=== PATIENT | female | born 1960 | race Caucasian/White ===

== ENCOUNTER 2016-05-14 16:36 | Emergency (ER) | payer OTHER ==
[2016-05-14 17:18] VITALS: BP 150/83
[2016-05-14] MEDS ORDERED: IBUPROFEN 600 MG TABLET PO ONE (17:58)
--- NOTE | 2016-05-14 17:58 | ERNOTE ---
Medical Problem HPI - Narrative Date of Service: 05/14/16 - General Chief Complaint: General Assessment Time Seen by Provider: 05/14/16 17:32 Source: patient Exam Limitations: no limitations - Immun/Allergies/Home Medications Immunizations: IMMUNIZATION HX Immunizations Up to Date Yes Allergies/Adverse Reactions: Allergies pravastatin sodium [From Pravachol] Allergy (Verified 05/14/16 17:18) atorvastatin calcium [From Lipitor] Adverse Reaction (Verified 05/14/16 17:18) muscle aches codeine Adverse Reaction (Verified 05/14/16 17:18) Nausea niacin Adverse Reaction (Verified 05/14/16 17:18) simvastatin [From Zocor] Adverse Reaction (Verified 05/14/16 17:18) muscle aches Siqabqv-Nxt-Ttv Reductase Inhibitor Adverse Reaction (Verified 05/14/16 17:18) muscle aches Home Medications: HOME MEDICATIONS Clonidine HCl [Catapres] 0.1 mg PO BID 02/23/13 [Last Taken Unknown] FLUoxetine HCL [Prozac] 60 mg PO DAILY 02/23/13 [Last Taken Unknown] Lisinopril 10 mg PO DAILY 02/23/13 [Last Taken Unknown] Metformin HCl 1,000 mg PO BID 02/23/13 [Last Taken Unknown] Omeprazole [Prilosec] 40 mg PO DAILY 02/23/13 [Last Taken Unknown] Oxybutynin Chloride [Ditropan Xl] 10 mg PO BID 02/23/13 [Last Taken Unknown] Cyclobenzaprine HCl [Flexeril] 10 mg PO BID 06/02/13 [Last Taken Unknown] Memantine HCl [Namenda] 10 mg PO BID 06/02/13 [Last Taken Unknown] Trazodone HCl 450 mg PO DAILY 06/02/13 [Last Taken Unknown] Cholecalciferol (Vitamin D3) [Vitamin D] 1,000 unit PO DAILY 08/02/13 [Last Taken Unknown] Albuterol Sulfate 2.5 mg IH Q4H #50 vial.neb 09/13/14 [Last Taken Unknown] Albuterol Sulfate/Ipratropium [Duoneb 2.5-0.5MG/3ML Soln] 3 ml IH Q6H #50 nebu 09/13/14 [Last Taken Unknown] Cymbalta 11/26/15 [Last Taken Unknown] Albuterol Sulfate [Ventolin Hfa] 2 puff IH Q4H PRN #1 inhaler 05/14/16 [Last Taken Unknown] Doxycycline Monohydrate 100 mg PO BID #20 tablet 05/14/16 [Last Taken Unknown] predniSONE [Prednisone] 3 tab PO DAILY #9 tab 05/14/16 [Last Taken Unknown] - History of Present History Narrative: Pt. comes in with c/o fever, malaise, nausea and vomiting, cough, and headache for two days. Pt. was seen in [facility] yesterday and diagnosed with upper resp infection but was found to be negative for strep and influenza per pt. Pt. denies any alleviating or aggravating factors, SOB, lightheadedness or dizziness. Pt. has a hx of COPD but has not used her nebulizer in over a month. Review of Systems - Review of Systems Constitutional: Present: recent illness, fever, chills, weakness, fatigue EYE: Present: no symptoms reported ENT: Present: nose congestion, nasal drainage. Absent: sore throat Respiratory: Present: cough. Absent: shortness of breath, wheezing Cardiology: Present: no symptoms reported. Absent: chest pain, palpitations, edema Gastrointestinal/Abdominal: Present: nausea, vomiting. Absent: diarrhea, abdominal pain Genitourinary: Present: no symptoms reported. Absent: frequency, dysuria, discharge Musculoskeletal: Present: muscle pain - generalized, joint pain - generalized. Absent: back pain Neurological: Present: no symptoms reported. Absent: headache, dizziness/light- headedness, numbness, tingling All Other Systems: All systems neg except as marked - Patient's Past Medical History Patient History - Medical: No pertinent hx, Diabetes Type 2, Fibromyalgia, GERD Patient History - Cardiac/Respiratory: No pertinent hx, Hypertension Patient History - Cancer: No Hx of Cancer Patient History - Surgical Procedures: No surgical history Patient History - Other: None LMP (females 10-50): Menopausal - Social History Living Situations: home - Immunizations Immunizations Up to Date: Yes Physical Exam - Physical Exam General Appearance: Present: wd/wn, alert, no apparent distress Eye Exam: Normal inspection: bilateral, PERRL: bilateral, EOMI: bilateral Ears, Nose, Throat: Present: hearing grossly normal, nasal congestion, normal pharynx. Absent: abnormal TM (R), abnormal TM (L) Neck: Present: nontender, lymphadenopathy (R) - submandibular ant cervical. Absent: lymphadenopathy (L) Respiratory: Present: no respiratory distress, no accessory muscle use, chest nontender, wheezing - L lung throughout Cardiovascular/Chest: Present: regular rate, rhythm, no murmur, normal peripheral pulses Gastrointestinal/Abdominal: Present: normal bowel sounds, nontender, nondistended, soft, no organomegaly Back Exam: Present: normal inspection, normal range of motion, no CVA tenderness , no vertebral tenderness Extremity Exam: Present: normal inspection, non-tender, no edema, normal range of motion Neurological Exam: Present: alert, oriented, normal mood/affect, no motor/ sensory deficits, organisation and methods analyst II-XII nml as tested, normal cerebellar test Skin Exam: Present: warm/dry, pallor. Absent: skin rash ED Progress - Results and Orders Patient's Lab Results:: I have reviewed the patient's lab results. - Vital Signs Patient's Vital Signs:: I have reviewed the patient's vital signs. Vital Signs: Vital Signs 05/14/16 17:13 Temperature 37.9 C H Pulse Rate 58 L Respiratory 16 Rate Blood Pressure 150/83 O2 Sat by Pulse 95 Oximetry - X-Ray X-Ray #1 X-Ray: chest Interpretation: Reviewed by me X-ray Comments: mild diffuse peribronchial thickening - Progress/Reassessment Chief Complaint: General Assessment Progress:: Improved Departure - Departure Clinical Impression: Acute bronchitis Qualifiers: Bronchitis organism: unspecified organism Qualified Code(s): J20.9 - Acute bronchitis, unspecified Disposition: Home self-care Condition: Good Instructions: Acute Bronchitis Additional Instructions: Please follow up with primary provider in 2-3 days. Referrals: Yanet Saravia MD [Primary Care Provider] - Prescriptions: Albuterol Sulfate [Ventolin Hfa] 2 puff IH Q4H PRN #1 inhaler PRN Reason: Shortness Of Breath Doxycycline Monohydrate 100 mg PO BID #20 tablet predniSONE [Prednisone] 3 tab PO DAILY #9 tab
[2016-05-14 18:09] LABS: Hematocrit 40.6 % (37.0-47.0); Hemoglobin 14.3 gm/dL (12.5-16.0); Mean Cell Volume 87.9 fl (78-100); Mean Corpuscular Hgb Conc 35.2 g/dl (32-36); Mean Platelet Volume 9.9 fl (6.0-9.5); Neutrophil # 6.8 K/mm3 (1.3-6.0); Neutrophil % 61.3 % (42-75.0); Platelet Count 257 K/mm3 (150-450); Red Blood Count 4.62 M/mm3 (4.2-5.4); Red Cell Distribution Width 11.7 % (11.5-14.0); White Blood Count 11.1 K/mm3 (4.0-10.5)
[2016-05-14] MEDS ORDERED: IBUPROFEN 600 MG TABLET ONE (18:10)
[2016-05-14 18:23] LABS: Anion Gap 15.2 mmol/L (6.8-13.8); BUN/Creatinine Ratio 16.7 (9.0-21.6); Bilirubin, Total 0.5 mg/dL (0.0-1.1); Ca. Corrected For Albumin 9.2 mg/dL (8.4-10.2); Calcium * 9.5 mg/dL (7.9-10.9); Carbon Dioxide 23.5 mmol/L (24-32.6); Potassium 3.7 mmol/L (3.4-4.6); Total Protein 7.8 gm/dL (6.2-8.2)
== END 2016-05-14 19:42 | disposition home or self-care (01) ==
LOC: ER 16:36
DX: J20.9 Acute bronchitis, unspecified (principal)

== ENCOUNTER 2017-11-21 06:25 | Inpatient (IN) | payer MEDICAID, MEDICARE ==
--- NOTE | 2017-11-09 07:27 | ANES ---
Anesthesia Pre Procedure Eval HOME MEDICATIONS FLUoxetine HCL [Prozac] 60 mg PO DAILY 02/23/13 [Last Taken Unknown] Omeprazole [Prilosec] 40 mg PO DAILY 02/23/13 [Last Taken Unknown] Oxybutynin Chloride [Ditropan Xl] 10 mg PO BID 02/23/13 [Last Taken Unknown] Memantine HCl [Namenda] 10 mg PO BID 06/02/13 [Last Taken Unknown] Cholecalciferol (Vitamin D3) [Vitamin D] 1,000 unit PO DAILY 08/02/13 [Last Taken Unknown] clonidine HCl 0.1 mg tablet See Label Instructions PO .COMPLEX #90 tab 10/24/17 [Last Taken Unknown] blood sugar diagnostic strips See Dose Instructions .ROUTE .MEDSUPPLY #20 ea 02/02 [Last Taken Unknown] glipizide 5 mg tablet 5 mg PO BID 10/25/17 [Last Taken Unknown] meloxicam 15 mg tablet 15 mg PO DAILY #30 tab 10/25/17 [Last Taken Unknown] metformin 500 mg tablet See Label Instructions PO BID 10/25/17 [Last Taken Unknown] tizanidine 4 mg capsule 4 mg PO Q8H PRN #30 cap 10/25/17 [Last Taken Unknown] trazodone 150 mg tablet See Label Instructions PO DAILY 10/25/17 [Last Taken Unknown] Allergies/Adverse Reactions: Allergies Allergy/AdvReac Type Severity Reaction Status Date / Time pravastatin sodium Allergy Verified 11/07/17 09:40 [From Pravachol] atorvastatin calcium AdvReac muscle Verified 11/07/17 09:40 [From Lipitor] aches codeine AdvReac Nausea Verified 11/07/17 09:40 niacin AdvReac Verified 11/07/17 09:40 simvastatin [From Zocor] AdvReac muscle Verified 11/07/17 09:40 aches Pquwngs-Ajg-Lqh Reductase AdvReac muscle Verified 11/07/17 09:40 Inhibitor aches - Planned Procedure Planned Procedure: Right Total Knee Arthroplasty Medication List Reviewed:: Yes Allergies Verified: Yes Medical History (Last Reviewed 11/09/17 @ 07:23 by Jacques Ken CRNA) Depression Onset Date: Unknown Diabetes type 2, controlled Onset Date: Unknown Essential hypertension Onset Date: ~2011 Fatigue Onset Date: Unknown Fibromyalgia Onset Date: Unknown GERD (gastroesophageal reflux disease) Onset Date: Unknown Hyperlipidemia Onset Date: ~2011 Obstructive sleep apnea Onset Date: 08/17/13 TMJ (temporomandibular joint disorder) Onset Date: Unknown Surgical History (Last Reviewed 11/09/17 @ 07:23 by Jacques Ken CRNA) History of appendectomy Onset Date: ~1965 History of carpal tunnel release Onset Date: ~2001 History of colonoscopy Onset Date: ~2009 History of laparoscopic cholecystectomy Onset Date: ~2013 History of nasal septoplasty Onset Date: ~2001 History of tubal ligation Onset Date: ~1987 [place] teeth extracted Onset Date: ~2012 Family History (Last Reviewed 11/09/17 @ 07:23 by Jacques Ken CRNA) Father Diabetes Mother Heart disease - Family Anesthesia History Family History:: no untoward family reactions to anesthesia, no familial bleeding tendencies, no family history of clotting disorders, no family history of premature - Airway/Neck/Teeth Teeth Condition: Missing Teeth Denture Type: Full- Upper Neck Exam: non-tender, full range of motion Mallampatti Score: 4 Thyromental (T-M) distance: > 6 cm Mandibulo Hyoid distance: > 3 cm Comments:: small mouth, hx TMJ - Respiratory Respiratory: chest non-tender, decreased breath sounds, rhonchi Smoking Status: Current every day smoker Discussed smoking cessation including day of surgery: Yes Sleep Apnea currently treated: Yes Sleep Apnea by current assessment: Yes Discussed Risks/Treatment of DAVID: Yes - including post op use of CPAP and risks - Cardiovascular Patient History - Cardiac/Respiratory: Hypertension, Hyperlipidemia, CPAP/BiPAP Home Use, Sleep Apnea Tolerates Activity: Fair Heart Sounds: S1 & S2, Regular - Anesthesia Assessment and Plan ASA Class: PS, III Anesthesia Type Plan: Block - adductor canal block for post op pain relief, Spinal Planned difficult intubation/equipment available: Yes
[~2017-11-21 06:25] MED LIST: MORPHINE SULFATE 15 MG TABLET.SA PO PRN; ROPIVACAINE HCL/PF 100 MG, EPINEPHrine 0.2 MG, KETOROLAC TROMETHAMINE 30 MG in NORMAL S... IJ PRN; ceFAZolin SODIUM 1 GM VIAL IV PRN
[2017-11-21] MEDS: RINGER'S SOLUTION,LACTATED 1,000 ML IV PRN ×3 (07:40→12:44)
[2017-11-21] MEDS ORDERED: TRANEXAMIC ACID 1,000 MG in NORMAL SALINE 100 ML IV PRN (08:00)
[2017-11-21] MEDS ORDERED: MAG HYDROX/ALUMINUM HYD/SIMETH 30 ML UDC PO PRN (09:46)
[2017-11-21] MEDS ORDERED: ONDANSETRON HCL/PF 2 MG/ML VIAL IV PRN (09:46)
[2017-11-21] MEDS ORDERED: ACETAMINOPHEN 500 MG TABLET PO PRN (09:46)
[2017-11-21] MEDS ORDERED: MAGNESIUM HYDROXIDE 30 ML UDC PO PRN (09:46)
[2017-11-21] MEDS ORDERED: RINGER'S SOLUTION,LACTATED 1,000 ML IV PRN (09:46)
[2017-11-21] MEDS ORDERED: diphenhydrAMINE HCL 50 MG/ML VIAL IV PRN (09:46)
[2017-11-21] MEDS ORDERED: ZOLPIDEM TARTRATE 5 MG TABLET PO PRN (09:46)
--- NOTE | 2017-11-21 09:46 | OR ---
Operative Report - Dictated Report Narrative: Date: 11/21/2017 Preoperative diagnosis: Right Knee degenerative joint disease. Postoperative diagnosis: Right Knee degenerative joint disease. Procedure: Right Total knee arthroplasty. Surgeon: Ayden Oakes M.D. Shellfish Bed Worker: Rm Reed PA-C Anesthesia: Spinal with regional block and local periarticular joint injection. Complications: None Specimens: Bone for disposal. Estimated blood loss: Minimal. Tourniquet time: 50 Minutes at 325 millimeters of mercury. Retained implants: Depuy Attune size 5 narrow right lugged cemented posterior stabilized femoral component. Size 4 fixed-bearing cemented tibial platform. 5 by 5 millimeter posterior stabilized cross-linked tibial insert. 35 millimeter medialized patella button. Indications: Mrs. Gonzales is a 57 -year-old female who has had long-standing right knee pain and arthrosis. This patient was followed in my clinic for period of time with significant complaints of right knee pain consistent with arthritic changes. She had failed conservative measures including, but not limited to, activity modification, passage of time, medications, and other conservative measures. Patient wished to proceed with surgical treatment. The risks, benefits, and alternatives were discussed in clinic. The risks of , blood clots, bleeding, infection, nerve/tendon blood vessel/ injury, malposition of components, intraoperative fracture, postoperative limited range of motion, persistent pain, failure of components, and need for additional procedures. Patient wished to proceed consent was obtained after answering all questions. Procedure: After marking the correct extremity in the preoperative area, the patient was taken to the operating room. A timeout was performed. IV antibiotics consisting of Ancef were administered prior to the procedure. A regional followed by spinal anesthetic was induced by anesthesia, per my request , on the operative table with all bony prominences well-padded. Saenz catheter was placed, and a bump was placed under the operative side buttock. SCDs and PRAVIN hose were utilized on the nonoperative leg. A well-padded tourniquet was applied to the operative thigh. The operative leg was then pre-scrubbed with alcohol prepped, and draped in a standard sterile fashion. After exsanguinating the extremity with an Esmarch bandage, the tourniquet was inflated. After marking out the anterior knee for standard incision centered over the patella, the skin was incised and dissected down to the joint retinaculum. The joint retinaculum was marked out as well as the horizontal axis of the patella, and a standard medial parapatellar arthrotomy was then made. The most proximal aspect of the quadriceps tendon and the patella tendon insertion were protected from release. A partial synovectomy was performed as well as a resection of the infrapatellar fat pad. The distal femoral fat pad proximal to the trochlea was also resected using cautery. The soft tissues were elevated off the medial aspect of the proximal tibia using a Badillo elevator ensuring that we did not transect the medial collateral ligament. Upon initial evaluation range of motion was approximately 10 degrees to 130 degrees of flexion. There were signs of advanced arthrosis in the medial, lateral, and patellofemoral joint spaces. There were large marginal osteophytes which were removed with a rongeur. The knee was hyperflexed and the patella was tucked laterally. Protecting the surrounding soft tissues with Homans, an entry drill was placed down the femoral canal using Whitesides line for guidance into the entry point. The intramedullary femoral alignment mark was utilized in order to cut the distal femur in 5 degrees of valgus resecting 11 millimeters of bone. Next the distal femur was sized to a size 5. A posterior referencing guide was utilized to place the distal femoral cutting block in 3 degrees of external rotation. This was pinned into place. The rotation was confirmed both visually and based on anatomic landmarks. The 4 in 1 cutting jig of the appropriate size was utilized in order to make all bony cuts. The angle wing was used to ensure no notching. Retractors were utilized in order to protect surrounding soft tissues. This cut did not result in any excessive notching. We then cut the box centered over the distal femur. This allowed for resection of the anterior and posterior cruciate ligaments. I then turned my attention to the preparation of the tibia. Using an extra medullary tibial alignment mark, 2 millimeters of bone was resected off the medial articular surface. This was made perpendicular to the mechanical axis of the joint with the alignment mark centered over the ankle mortise. The alignment mark was checked and was noted to be parallel to the mechanical axis, centered over the medial one third of the tibial tubercle, paralleling the anterior surface of the tibia. We then turned our attention to the remaining meniscus and soft tissues. These were removed while protecting the surrounding ligaments and soft tissues. The marginal osteophytes off the anterior, posterior, medial, lateral aspects of the femur and tibia were removed. The tibia was sized out to a size 4. Next the tibia was drilled and punched in an externally rotated position. Next the trial femur and a series of tibial inserts were utilized in order to allow for full extension and maximal flexion. It was found that a 5 millimeter insert gave the best range of motion and stability at multiple flexion points as well as at full extension there was less than 2 mm of gapping both medially and laterally. There is minimal anterior translation with the knee at 90 degrees of flexion and no signs of being able to dislocate the knee. The patella was then prepared. The initial thickness was 22 millimeters. This was reamed down to 12 millimeters parallel to the anterior surface of the patella. It was sized out to a size 35 medialized patella button. This was then drilled and trialed. Without any medial restraint the patella tracked appropriately and did not sublux or dislocate. At this point, it was felt these were the appropriate sized implants, and all trials were removed. The standard periarticular joint injection consisting of ropivacaine, Toradol, and epinephrine were injected into the periarticular joint tissues. The bony surfaces were thoroughly irrigated with a pulsatile- suction saline irrigation device. A bone plug from the prior resected anterior chamfer cut was placed into the drill hole at the distal femur. The bony surfaces were then dried in preparation for placement of the implants. The cement was vacuum mixed per the machine stoppage frequency checker's instructions. The cement was placed on the dry bony surfaces and posterior aspect of the implants. The implants were impacted into place, removing all extruded cement. At this point anesthesia administered tranexamic acid per protocol intravenously. The knee was placed in extension with axial loading with the trial insert while the cement cured. Once the cement cured, all remaining extruded cement was removed. The knee was placed through a range of motion with the trial insert to ensure appropriate range of motion and stability. Final range of motion was approximately 0 to 130 degrees. The knee was again thoroughly irrigated with pulsatile saline lavage. The final polyethylene insert was then impacted into place ensuring no retained soft tissues. The remaining periarticular joint injection was injected. A medium Hemovac drain was placed exiting superior laterally. The knee was then placed over a triangle and the arthrotomy was closed with interrupted #1 Vicryl after thoroughly irrigating the joint. The deep and subcutaneous tissues were closed with interrupted 0 and 3-0 Vicryl respectively. Skin was closed with a running subcutaneous 3-0 Monocryl and Prineo Dermabond dressing. 4 x 4's, Sof-Rol, and a full leg Vincent wrap were applied. All sponge, needle, blade, and instrument counts were correct prior to closing the wounds. Postoperative condition: The patient was awoken and transferred to the postanesthesia care unit in stable condition. Plan is to be admitted to the inpatient medical/surgical floor postoperatively for 24 hours of IV antibiotics , physical therapy, occupational therapy, and medical comanagement. Patient will be weightbearing as tolerated with range of motion as tolerated. DVT prophylaxis will be with SCDs, PRAVIN hose, and pharmacological anticoagulation. Anticipated hospital stay is approximately 1-3 days.
--- NOTE | 2017-11-21 09:58 | ANES ---
Anesthesia Procedure Note Procedure Note: ANESTHESIA PROCEDURE NOTE Date of Procedure: 11/21/2017 Time of procedure: 7:55 AM. Performed by: YI Sanches CRNA, MSN Vending Machine Attendant: Betty Bentley RN. Preprocedure diagnosis: Right total knee arthroplasty pain relief. Post procedure diagnosis: Same. Procedure: Great Adductor Canal Block. Indications: Post right total knee arthroplasty pain relief. Findings: See below. Details of the procedure: The patient was brought to OR #4 and placed in supine position. The patient's right femoral area to the knee was prepped with chlorhexidine and using ultrasound guidance the right femoral artery and nerve was identified and then followed to the level of the adductor canal. Lidocaine 1% was infiltrated to the skin of the intended injection site. Under ultrasound guidance the saphenous nerve was approached with visualization of a 4 inch shielded block needle. Once saphenous nerve was identified with proximity to the needle tip, the saphenous nerve was surrounded with 20 mL bupivacaine 0.5% with 1-200,000 epinephrine. Please see radiology/ultrasound report for details and retained images of the procedure. EBL: 0 Fluids: N/A. Specimen: N/A. Post procedure condition: The patient tolerated the procedure well. No complications were noted. Thank you for this consultation. Jacques Ken CRNA, ARNP, MSN
--- NOTE | 2017-11-21 09:59 | ANES ---
Post Anesthesia Discharge - Transfer of Care Transfer of Care handoff given to nurse: Yes - Discharge from PACU Discharge from PACU when meets criteria: Yes - Awake and comfortable
--- NOTE | 2017-11-21 10:45 | ANES ---
Post Anesthesia Assessment - Vital Signs Vitals: Last Vital Signs Temp 36.5 C 11/21/17 10:25 Pulse 68 11/21/17 10:25 Resp 16 11/21/17 10:25 BP 99/50 11/21/17 10:25 Pulse Ox 97 11/21/17 10:25 Airway Patency: Normal - Mental Status Level Of Consciousness: Awake, Alert - Pain Level Pain Score: 0 - N/V Assessment Nausea/Vomiting Presence: None Dehydration:: No
[2017-11-21] MEDS: KETOROLAC TROMETHAMINE 15 MG/ML VIAL IV SCH ×3 (11:01→21:54)
[2017-11-21] MEDS: ceFAZolin SODIUM 1 GM in DEXTROSE 5 % IN WATER 100 ML IV SCH ×6 (11:03→23:36)
--- NOTE | 2017-11-21 14:22 | ANES ---
Post Anesthesia Assessment - Vital Signs Vitals: Last Vital Signs Temp 36.5 C 11/21/17 11:12 Pulse 65 11/21/17 12:46 Resp 14 11/21/17 11:12 BP 111/63 11/21/17 12:46 Pulse Ox 95 11/21/17 12:46 Airway Patency: Normal - Mental Status Level Of Consciousness: Awake, Alert - Pain Level Pain Score: 0 - N/V Assessment Nausea/Vomiting Presence: None Dehydration:: Yes
[2017-11-21] MEDS: oxyCODONE HCL/ACETAMINOPHEN 1 TAB TABLET PO PRN ×2 (15:11→23:43)
[2017-11-21] MEDS: metFORMIN HCL 500 MG TABLET PO SCH (17:52)
[2017-11-21] MEDS: OXYBUTYNIN CHLORIDE 5 MG TABLET PO SCH (20:43)
[2017-11-21] MEDS: MEMANTINE HCL 10 MG TABLET PO SCH (20:44)
[2017-11-21] MEDS: glipiZIDE 5 MG TABLET PO SCH (20:46)
[2017-11-21] MEDS: MORPHINE SULFATE 15 MG TABLET.SA PO SCH (20:54)
[2017-11-21] MEDS ORDERED: SENNOSIDES/DOCUSATE SODIUM 1 TAB TABLET PO SCH (21:00)
[2017-11-21] MEDS ORDERED: CLONIDINE HCL 0.1 MG TABLET PO SCH (21:00)
[2017-11-21] MEDS ORDERED: traZODone HCL 150 MG TABLET PO SCH (21:00)
[2017-11-22] MEDS: RINGER'S SOLUTION,LACTATED 1,000 ML IV PRN (03:51)
[2017-11-22] MEDS: KETOROLAC TROMETHAMINE 15 MG/ML VIAL IV SCH ×2 (03:52→09:42)
[2017-11-22 05:46] LABS: Anion Gap 8.1 mmol/L (6.8-13.8); BUN/Creatinine Ratio 12.5 (9.0-21.6); Calcium * 8.2 mg/dL (7.9-10.9); Carbon Dioxide 31.3 mmol/L (24-32.6); Potassium 4.4 mmol/L (3.4-4.6)
[2017-11-22 06:19] LABS: Hematocrit 29.4 % (37.0-47.0); Hemoglobin 9.9 gm/dL (12.5-16.0); Mean Cell Volume 93.3 fl (78-100); Mean Corpuscular Hemoglobin 31.4 pg (27-31); Mean Corpuscular Hgb Conc 33.7 g/dl (32-36); Mean Platelet Volume 10.2 fl (8-12.5); Platelet Count 166 K/mm3 (150-450); Red Blood Count 3.15 M/mm3 (4.2-5.4); Red Cell Distribution Width 11.8 % (11.5-14.0); White Blood Count 6.3 K/mm3 (4.0-10.5)
[2017-11-22] MEDS ORDERED: PANTOPRAZOLE SODIUM 40 MG TABLET.EC PO SCH (07:00)
[2017-11-22] MEDS: metFORMIN HCL 500 MG TABLET PO SCH (08:20)
[2017-11-22] MEDS: glipiZIDE 5 MG TABLET PO SCH (08:20)
[2017-11-22] MEDS: OXYBUTYNIN CHLORIDE 5 MG TABLET PO SCH (08:20)
[2017-11-22] MEDS: MEMANTINE HCL 10 MG TABLET PO SCH (08:20)
[2017-11-22] MEDS: MORPHINE SULFATE 15 MG TABLET.SA PO SCH (08:20)
[2017-11-22] MEDS ORDERED: ENOXAPARIN SODIUM 40 MG/0.4 ML SYRG SC SCH (08:47)
[2017-11-22] MEDS ORDERED: FLUoxetine HCL 20 MG CAPSULE PO SCH (09:00)
[2017-11-22] MEDS ORDERED: CLONIDINE HCL 0.1 MG TABLET PO SCH (09:00)
[2017-11-22] MEDS ORDERED: CHOLECALCIFEROL 1,000 UNIT CAPSULE PO SCH (09:00)
[2017-11-22] MEDS: oxyCODONE HCL/ACETAMINOPHEN 1 TAB TABLET PO PRN ×2 (09:42→13:43)
--- NOTE | 2017-11-22 11:17 | ANES ---
Post Anesthesia Assessment - Vital Signs Vitals: Last Vital Signs Temp 37.0 C 11/22/17 08:12 Pulse 60 11/22/17 08:20 Resp 18 11/22/17 08:12 BP 132/78 11/22/17 08:20 Pulse Ox 96 11/22/17 08:12 Airway Patency: Normal - Mental Status Level Of Consciousness: Awake, Alert, Appropriate - Pain Level Pain Score: 2 - N/V Assessment Nausea/Vomiting Presence: None Dehydration:: No
--- NOTE | 2017-11-22 14:30 | DS ---
(1) Status post total right knee replacement Problem: Acute (2) Acute blood loss anemia Problem: Acute (3) Diabetes 1.5, managed as type 2 Problem: Chronic (4) Hypertension Problem: Chronic (5) Hyperlipidemia Problem: Chronic (6) Depression Problem: Chronic (7) Obesity Problem: Chronic Description of Stay: Mrs. Gonzales was admitted to the floor after undergoing right total knee arthroplasty. Tolerated this well. Was admitted to the floor postoperatively for 24 hours of IV antibiotics, pain control, medical comanagement, and occupational and physical therapy. OT and PT were consulted to assist with activities of daily living and ambulation. Was made weightbearing as tolerated with range of motion as tolerated. Pain was initially controlled with IV regimen. This was transitioned to oral once tolerating a by mouth intake. Was resumed on home diet and medications. Had a Saenz catheter inserted and the operating room which was discontinued on postoperative day 1. A drain was placed intraoperatively into the knee which was discontinued on postoperative day 1. Lovenox SCD and PRAVIN hose were utilized for DVT prophylaxis. Vital signs remained stable to the hospital course. Serial labs were obtained which showed a final hemoglobin of 9.9 grams. BMP was reviewed and was stable. Physical examination throughout the hospital course showed an extremity that had sensation that was intact to light touch, palpable pulses, a benign wound, motor intact to the toes, ankle, and knee. Knee range of motion was approximately 5 degrees to 70 degrees. Once an oral pain regimen was tolerated and physical therapy goals were met, it was felt that they were stable for discharge to home. Instructions: Continue with weightbearing as tolerated and range of motion as tolerated. It is OK to shower on the wound if it is not draining. If you note any drainage or for comfort you can cover with dry gauze and tape. Change every 2-3 days as needed. Continue with physical therapy. Resume home diet. Report any fever over 101.5 Fahrenheit, uncontrolled pain, increased drainage, foul odor of drainage, new or increased calf pain or shortness of breath, or any other significant complaints. A 325mg dialy aspirin will be started after finishing anticoagulation if not allergic. Continue with PRAVIN hose on the operative extremity until instructed otherwise. No driving until instructed otherwise. Follow up in approximately 10-14 days. Procedures Performed: see notes below List Procedures: Right total knee arthroplasty Results and Findings: Lab Pending Results 11/22/17 05:34: WBC 6.3, RBC 3.15 L, Hgb 9.9 L, Hct 29.4 L, MCV 93.3, MCH 31.4 H , MCHC 33.7, RDW 11.8, Plt Count 166, MPV 10.2 11/22/17 05:34: Sodium 138, Plasma Sodium 138, Potassium 4.4, Chloride 103, Carbon Dioxide 31.3, Anion Gap 8.1, BUN 10, Creatinine 0.80, Est GFR (Non-Af Amer) 78, BUN/Creatinine Ratio 12.5, Random Glucose 128 H, Calcium 8.2 Discharge Location: Home Disposition: Home self-care Condition: Good Discharge Activity: Activity as tolerated, Weight bearing, Other - with walker Discharge Diet: Consistent carbs, Low salt Referrals: Yanet Saravia MD [Primary Care Provider] - Problem Oriented Discharge Instructions to Patient/Family: Total Knee Replacement, Care After, [id number] Additional Patient Instructions (free text): Follow up with Dr Oakes's office on Tuesday12/13/17 at 9:45am. Outpatient therapy will call you with your Physical Therapy appointment at [facility] rehab department. Prescriptions (Any new or edited meds): Morphine Sulfate [Ms Contin] 15 mg PO Q12H #20 tablet.sa oxyCODONE HCL/ACETAMINOPHEN [Percocet 5 MG/325 MG] 2 tab PO Q4H PRN #90 tablet PRN Reason: Moderate Pain (Pain Scale 4-6) Complete Home Medications List: Complete Home Medication List: FLUoxetine HCL [Prozac] 60 mg PO DAILY 02/23/13 Omeprazole [Prilosec] 40 mg PO DAILY 02/23/13 Oxybutynin Chloride [Ditropan Xl] 10 mg PO BID 02/23/13 Memantine HCl [Namenda] 10 mg PO BID 06/02/13 Cholecalciferol (Vitamin D3) [Vitamin D] 2,000 unit PO DAILY 08/02/13 clonidine HCl 0.1 mg tablet See Label Instructions PO .COMPLEX #90 tab 10/24/17 glipizide 5 mg tablet 5 mg PO BID 10/25/17 meloxicam 15 mg tablet 15 mg PO DAILY #30 tab 10/25/17 tizanidine 4 mg capsule 4 mg PO Q8H PRN #30 cap 10/25/17 trazodone 150 mg tablet See Label Instructions PO DAILY 10/25/17 metFORMIN HCL [Metformin HCl] 500 mg PO BID 11/09/17 Morphine Sulfate [Ms Contin] 15 mg PO Q12H #20 tablet.sa 11/22/17 oxyCODONE HCL/ACETAMINOPHEN [Percocet 5 MG/325 MG] 2 tab PO Q4H PRN #90 tablet 11/22/17
[2017-11-22 15:42] VITALS: BP 147/49
== END 2017-11-22 15:50 | disposition home or self-care (01) | DRG 470 ==
LOC: MS 06:25 → EDSTATUS 08:00
PROVIDERS: ADMIT Orthopaedic Surgery; ATTEND Orthopaedic Surgery
DX: Z88.8 Allergy status to other drugs, medicaments and biological substances; K21.9 Gastro-esophageal reflux disease without esophagitis; M17.11 Unilateral primary osteoarthritis, right knee; Z88.6 Allergy status to analgesic agent; I10 Essential (primary) hypertension; Z79.84 Long term (current) use of oral hypoglycemic drugs; E11.9 Type 2 diabetes mellitus without complications; M79.7 Fibromyalgia; D62 Acute posthemorrhagic anemia; E78.5 Hyperlipidemia, unspecified
CPT/HCPCS: 36415; 73560; 80048; 85027; 94660; 97110; 97116; 97161; 97166; 97535; A4210

== ENCOUNTER 2018-03-01 06:52 | Inpatient (IN) | payer MEDICAID, MEDICARE ==
[~2018-03-01 06:52] MED LIST changes: -MORPHINE SULFATE 15 MG TABLET.SA PO PRN; +TRANEXAMIC ACID 1,000 MG in NORMAL SALINE 100 ML IV PRN
[2018-03-01] MEDS: RINGER'S SOLUTION,LACTATED 1,000 ML IV PRN ×3 (07:38→10:16)
--- NOTE | 2018-03-01 08:12 | ANES ---
Anesthesia Pre Procedure Eval Vitals/Labs: Last Vital Signs Temp 36.4 C 03/01/18 07:02 Pulse 48 L 03/01/18 07:02 Resp 16 03/01/18 07:02 BP 152/56 H 03/01/18 07:02 Pulse Ox 96 03/01/18 07:02 HOME MEDICATIONS Memantine HCl [Namenda] 10 mg PO BID 06/02/13 [Last Taken 11/20/17] Cholecalciferol [Vitamin D] 2,000 unit PO DAILY cap 11/22/17 [Last Taken Unknown] Sennosides/Docusate Sodium [Senokot-S] 2 tab PO HS #30 tab 11/22/17 [Last Taken Unknown] fluoxetine 20 mg capsule 80 mg PO QAM #120 cap 12/22/17 [Last Taken Unknown] acetaminophen ER 650 mg tablet,extended release 1,300 mg PO Q6H PRN tab 01/19/18 [Last Taken Unknown] clonidine HCl 0.1 mg tablet See Rx Instructions PO .COMPLEX #90 tab 01/24/18 [Last Taken Unknown] glipizide 5 mg tablet 5 mg PO BID #60 tab 01/24/18 [Last Taken Unknown] metformin 500 mg tablet 500 mg PO BID #60 tab 01/24/18 [Last Taken Unknown] omeprazole 40 mg capsule,delayed release 40 mg PO DAILY #90 cap 01/24/18 [Last Taken Unknown] oxybutynin chloride 5 mg tablet 10 mg PO BID #120 tab 01/24/18 [Last Taken Unknown] trazodone 150 mg tablet 450 mg PO DAILY #90 tab 01/24/18 [Last Taken Unknown] magnesium oxide 500 mg tablet 500 mg PO DAILY tab 02/22/18 [Last Taken Unknown] potassium 99 mg tablet 99 mg PO DAILY tab 02/22/18 [Last Taken Unknown] Allergies/Adverse Reactions: Allergies Allergy/AdvReac Type Severity Reaction Status Date / Time pravastatin sodium Allergy Muscle Pain Verified 03/01/18 07:05 [From Pravachol] niacin AdvReac Unknown unknown Verified 03/01/18 07:05 atorvastatin calcium AdvReac muscle Verified 03/01/18 07:05 [From Lipitor] aches codeine AdvReac Nausea Verified 03/01/18 07:05 gabapentin AdvReac Nausea Verified 03/01/18 07:05 simvastatin [From Zocor] AdvReac muscle Verified 03/01/18 07:05 aches Enfqmxb-Sby-Ywg Reductase AdvReac muscle Verified 03/01/18 07:05 Inhibitor aches - Planned Procedure Planned Procedure: Arthroplasty Total Knee Medication List Reviewed:: Yes Allergies Verified: Yes Medical History (Last Reviewed 03/01/18 @ 08:07 by Ousmane Gifford CRNA) DAVID on CPAP Current non-drinker of alcohol Does not use illicit drugs RLS (restless legs syndrome) Seasonal allergies Wears glasses Depression Onset Date: Unknown Diabetes type 2, controlled Onset Date: Unknown Essential hypertension Onset Date: ~2011 Fatigue Onset Date: Unknown Fibromyalgia Onset Date: Unknown GERD (gastroesophageal reflux disease) Onset Date: Unknown Hyperlipidemia Onset Date: ~2011 Obstructive sleep apnea Onset Date: 08/17/13 TMJ (temporomandibular joint disorder) Onset Date: Unknown Mobile teeth extracted Onset Date: ~2012 Surgical History (Last Reviewed 03/01/18 @ 08:07 by Ousmane Gifford CRNA) Status post right knee replacement Onset Date: 11/2017 History of appendectomy Onset Date: ~1965 History of carpal tunnel release Onset Date: ~2001 History of colonoscopy Onset Date: ~2009 History of laparoscopic cholecystectomy Onset Date: ~2013 History of nasal septoplasty Onset Date: ~2001 History of tubal ligation Onset Date: ~1987 Family History (Last Reviewed 03/01/18 @ 08:07 by Ousmane Gifford CRNA) Father Diabetes Heart problem Mother Heart disease Hypothyroidism Grandmother Heart disease Grandmother Cancer of utero-ovarian Grandfather Bladder cancer - Airway/Neck/Teeth Teeth Condition: Missing Teeth Mallampatti Score: 4 Thyromental (T-M) distance: > 6 cm Mandibulo Hyoid distance: > 3 cm - Respiratory Respiratory: lungs clear Smoking Status: Current every day smoker Discussed smoking cessation including day of surgery: Yes Sleep Apnea currently treated: Yes Sleep Apnea by current assessment: No Discussed Risks/Treatment of DAVID: No - Cardiovascular Tolerates Activity: Fair - Anesthesia Assessment and Plan ASA Class: PS, III Anesthesia Type Plan: Block - Left ultrasound guided adductor canal block for postop analgesia, Spinal
[2018-03-01] MEDS ORDERED: diphenhydrAMINE HCL 50 MG/ML VIAL IV PRN (10:16)
[2018-03-01] MEDS ORDERED: MAGNESIUM HYDROXIDE 30 ML UDC PO PRN (10:16)
[2018-03-01] MEDS ORDERED: MAG HYDROX/ALUMINUM HYD/SIMETH 30 ML UDC PO PRN (10:16)
[2018-03-01] MEDS ORDERED: ZOLPIDEM TARTRATE 5 MG TABLET PO PRN (10:16)
[2018-03-01] MEDS ORDERED: MORPHINE SULFATE 2 MG/ML DISP.SYRIN IV PRN (10:16)
[2018-03-01] MEDS ORDERED: ONDANSETRON HCL/PF 2 MG/ML VIAL IV PRN (10:16)
[2018-03-01] MEDS ORDERED: ACETAMINOPHEN 500 MG TABLET PO PRN (10:16)
[2018-03-01] MEDS ORDERED: RINGER'S SOLUTION,LACTATED 1,000 ML IV PRN (10:16)
--- NOTE | 2018-03-01 10:16 | OR ---
Operative Report - Dictated Report Narrative: Date: 03/01/2018 Preoperative diagnosis: Left Knee degenerative joint disease. Postoperative diagnosis: Left Knee degenerative joint disease. Procedure: Left Total knee arthroplasty. Surgeon: Ayden Oakes M.D. Naturalization Examiner: Rm Reed PA-C (provided an essential set of skilled, knowledgeable hands which provided with positioning, preparation, retraction, manipulation, assisted with placing pins and blocks, irrigation, wound closure, and dressings which could not be performed by the available OR crew) Anesthesia: Spinal with regional block and local periarticular joint injection. Complications: None Specimens: Bone for disposal. Estimated blood loss: Minimal. Tourniquet time: 90 Minutes at 325 millimeters of mercury. Retained implants: Depuy Attune size 6 narrow left lugged cemented posterior stabilized femoral component. Size 4 fixed-bearing cemented tibial platform. 6 by 5 millimeter posterior stabilized cross-linked tibial insert. 35 millimeter medialized patella button. Indications: Mrs. Christian bautista is a 57-year-old female who has had long-standing left knee pain and arthrosis. This patient was followed in my clinic for period of time with significant complaints of left knee pain consistent with arthritic changes. She had failed conservative measures including, but not limited to, activity modification, passage of time, medications, and other conservative measures. Patient wished to proceed with surgical treatment. The risks, bene fits, and alternatives were discussed in clinic. The risks of , blood clots, bleeding, infection, nerve/tendon blood vessel/ injury, malposition of components, intraoperative fracture, postoperative limited range of motion, persistent pain, failure of components, and need for additional procedures. Patient wished to proceed consent was obtained after answering all questions. Procedure: After marking the correct extremity on the floor, the patient was taken to the operating room. A timeout was performed. IV antibiotics consisting of Ancef were administered prior to the procedure. A regional followed by spinal anesthetic was induced by anesthesia, per my request, on the operative table with all bony prominences well-padded. Saenz catheter was placed, and a bump was placed under the operative side buttock. SCDs and PRAVIN hose were utilized on the nonoperative leg. A well-padded tourniquet was applied to the operative thigh. The operative leg was then pre-scrubbed with alcohol prepped, and draped in a standard sterile fashion. After exsanguinating the extremity with an Esmarch bandage, the tourniquet was inflated. After marking out the anterior knee for standard incision centered over the patella, the skin was incised and dissected down to the joint retinaculum. The joint retinaculum was marked out as well as the horizontal axis of the patella, and a standard medial parapatellar arthrotomy was then made. The most proximal aspect of the quadriceps tendon and the patella tendon insertion were protected from release. A partial synovectomy was performed as well as a resection of the infrapatellar fat pad. The distal femoral fat pad proximal to the trochlea was also resected using cautery. The soft tissues were elevated off the medial aspect of the proximal tibia using a Badillo elevator ensuring that we did not transect the medial collateral ligament. Upon initial evaluation range of motion was approximately 10 degrees to 130 degrees of flexion. There were signs of advanced arthrosis in the medial, patellofemoral greater than the lateral joint spaces. There were large marginal osteophytes which were removed with a rongeur. The knee was hyperflexed and the patella was tucked laterally. Protecting the surrounding soft tissues with Homans, an entry drill was placed down the femoral canal using Whitesides line for guidance into the entry point. The intramedullary femoral alignment mark was utilized in order to cut the distal femur in 5 degrees of valgus resecting 10 millimeters of bone. Next the distal femur was sized to a size 6. A posterior referencing guide was utilized to place the distal femoral cutting block in 3 degrees of external rotation. This was pinned into place. The rotation was confirmed both visually and based on anatomic landmarks. The 4 in 1 cutting jig of the appropriate size was utilized in order to make all bony cuts. The angle wing was used to ensure no notching. Retractors were utilized in order to protect surrounding soft tissues. This cut did not result in any excessive notching. We then cut the box centered over the distal femur. This allowed for resection of the anterior and posterior cruciate ligaments. I then turned my attention to the preparation of the tibia. Using an extra medullary tibial alignment mark, 6 millimeters of bone was resected off the medial articular surface. This was made perpendicular to the mechanical axis of the joint with the alignment mark centered over the ankle mortise. The alignment mark was checked and was noted to be parallel to the mechanical axis, centered over the medial one third of the tibial tubercle, paralleling the anterior surface of the tibia. We then turned our attention to the remaining meniscus and soft tissues. These were removed while protecting the surrounding ligaments and soft tissues. The marginal osteophytes off the anterior, posterior, medial, lateral aspects of the femur and tibia were removed. The tibia was sized out to a size 4. Next the tibia was drilled and punched in an externally rotated position. Next the trial femur and a series of tibial inserts were utilized in order to allow for full extension and maximal flexion. It was found that a 5 millimeter insert gave the best range of motion and stability at multiple flexion points as well as at full extension there was less than 2 mm of gapping both medially and laterally. There is minimal anterior translation with the knee at 90 degrees of flexion and no signs of being able to dislocate the knee. The patella was then prepared. The initial thickness was 22 millimeters. This was reamed down to 13 millimeters parallel to the anterior surface of the patella. It was sized out to a size 35 medialized patella button. This was then drilled and trialed. Without any medial restraint the patella tracked appropriately and did not sublux or dislocate. At this point, it was felt these were the appropriate sized implants, and all trials were removed. The standard periarticular joint injection consisting of ropivacaine, Toradol, and epinephrine were injected into the periarticular joint tissues. The bony surfaces were thoroughly irrigated with a pulsatile-suction saline irrigation device. A bone plug from the prior resected anterior chamfer cut was placed into the drill hole at the distal femur. The bony surfaces were then dried in preparation for placement of the implants. The cement was vacuum mixed per the putty maker's instructions. The cement was placed on the dry bony surfaces and posterior aspect of the implants. The implants were impacted into place, removing all extruded cement. At this point anesthesia administered tranexamic acid per protocol intravenously. The knee was placed in extension with axial loading with the trial insert while the cement cured. Once the cement cured, all remaining extruded cement was removed. The knee was placed through a range of motion with the trial insert to ensure appropriate range of motion and stability. Final range of motion was approximately 0 to 130 degrees. The knee was again thoroughly irrigated with pulsatile saline lavage. The final polyethylene insert was then impacted into place ensuring no retained soft tissues. The remaining periarticular joint injection was injected. A medium Hemovac drain was placed exiting superior laterally. The knee was then placed over a triangle and the arthrotomy was closed with interrupted #1 Vicryl after thoroughly irrigating the joint. The deep and subcutaneous tissues were closed with interrupted 0 and 3-0 Vicryl respectively. Skin was closed with a running subcutaneous 3-0 Monocryl and Prineo Dermabond dressing. 4 x 4's, Sof-Rol, and a full leg Vnicent wrap were applied. All sponge, needle, blade, and instrument count s were correct prior to closing the wounds. Postoperative condition: The patient was awoken and transferred to the postanesthesia care unit in stable condition. Plan is to be admitted to the inpatient medical/surgical floor postoperatively for 24 hours of IV antibiotics, physical therapy, occupational therapy, and medical comanagement. Patient will be weightbearing as tolerated with range of motion as tolerated. DVT prophylaxis will be with SCDs, PRAVIN hose, and pharmacological anticoagulation. Anticipated hospital stay is approximately 1-3 days.
--- NOTE | 2018-03-01 11:57 | ANES ---
Post Anesthesia Discharge - Transfer of Care Transfer of Care handoff given to nurse: Yes - Discharge from PACU Discharge from PACU when meets criteria: Yes - Discharge to ASU Discharge to ASU-no complications/pt stable: Yes
--- NOTE | 2018-03-01 11:57 | ANES ---
Post Anesthesia Assessment - Vital Signs Vitals: Last Vital Signs Temp 36.4 C 03/01/18 11:41 Pulse 51 L 03/01/18 11:41 Resp 18 03/01/18 11:41 BP 138/69 03/01/18 11:41 Pulse Ox 94 03/01/18 11:41 Airway Patency: Normal - Mental Status Level Of Consciousness: Awake - Pain Level Pain Score: 0 - N/V Assessment Nausea/Vomiting Presence: None Dehydration:: No
[2018-03-01] MEDS: KETOROLAC TROMETHAMINE 15 MG/ML VIAL IV SCH ×2 (12:52→16:42)
[2018-03-01] MEDS: CLONIDINE HCL 0.2 MG TABLET PO SCH (12:52)
--- NOTE | 2018-03-01 12:52 | ANES ---
Anesthesia Procedure Note Procedure Note: ANESTHESIA PROCEDURE NOTE Date of Procedure: 03/01/2018. Time of procedure: 814. Performed by: Ousmane Gifford CRNA Thermo Processor: None. Preprocedure diagnosis: Left knee degenerative joint disease. Post procedure diagnosis: Same. Procedure: Left ultrasound guided adductor canal block for postoperative analgesia. Indications: The patient is a 57-year-old female, requesting left ultrasound- guided abductor canal block for postoperative analgesia related to left total knee arthroplasty. Findings: See below. Details of the procedure: The tissue over the intended target site was cleansed with ChloraPrepand draped in a sterile fashion. 2 ml Lidocaine 1 % was infiltrated to the skin and subcutaneous tissue at the intended target site. Under sterile technique and ultrasound guidance a 18-gauge Tuohy needle was inserted through the left sartorius muscle to the saphenous nerve just anterior and medial to the superficial femoral artery and vein. 15 mL's of 0.5% bupivacaine was injected after negative aspiration for blood. Needle tip and spread of local anesthetic surrounding the saphenous nerve was observed throughout the injection with real time ultrasound visualization. The Tuohy needle was then removed intact. No complications were noted. The images were retained in the Hospital medical database . EBL: Minimal. Fluids: N/A. Specimen: N/A. Post procedure condition: The patient tolerated the procedure well. No complications were noted. Thank you for this consultation. Ousmane Gifford CRNA
[2018-03-01] MEDS: ceFAZolin SODIUM 1 GM in DEXTROSE 5 % IN WATER 100 ML IV SCH ×4 (14:03→20:21)
[2018-03-01] MEDS: oxyCODONE HCL/ACETAMINOPHEN 1 TAB TABLET PO PRN (16:27)
[2018-03-01] MEDS: glipiZIDE 5 MG TABLET PO SCH (17:38)
[2018-03-01] MEDS: OXYBUTYNIN CHLORIDE 5 MG TABLET PO SCH (20:46)
[2018-03-01] MEDS: metFORMIN HCL 500 MG TABLET PO SCH (20:47)
[2018-03-01] MEDS: MORPHINE SULFATE 15 MG TABLET.SA PO SCH (20:47)
[2018-03-01] MEDS: MEMANTINE HCL 10 MG TABLET PO SCH (20:47)
[2018-03-01] MEDS ORDERED: CLONIDINE HCL 0.1 MG TABLET PO SCH (21:00)
[2018-03-01] MEDS ORDERED: SENNOSIDES/DOCUSATE SODIUM 1 TAB TABLET PO SCH (21:00)
[2018-03-02] MEDS: KETOROLAC TROMETHAMINE 15 MG/ML VIAL IV SCH ×3 (00:01→12:27)
[2018-03-02] MEDS: oxyCODONE HCL/ACETAMINOPHEN 1 TAB TABLET PO PRN ×3 (01:21→12:26)
[2018-03-02] MEDS: ceFAZolin SODIUM 1 GM in DEXTROSE 5 % IN WATER 100 ML IV SCH ×2 (02:37)
[2018-03-02 05:26] LABS: Anion Gap 7.6 mmol/L (6.8-13.8); BUN/Creatinine Ratio 13.8 (9.0-21.6); Calcium * 8.3 mg/dL (7.9-10.9); Carbon Dioxide 27.6 mmol/L (24-32.6); Estimated Creat Clear 68.9; Potassium 4.2 mmol/L (3.4-4.6)
[2018-03-02 05:30] LABS: Hematocrit 31.6 % (37.0-47.0); Hemoglobin 10.7 gm/dL (12.5-16.0); Mean Cell Volume 87.1 fl (78-100); Mean Corpuscular Hemoglobin 29.5 pg (27-31); Mean Corpuscular Hgb Conc 33.9 g/dl (32-36); Mean Platelet Volume 9.9 fl (8-12.5); Platelet Count 204 K/mm3 (150-450); Red Blood Count 3.63 M/mm3 (4.2-5.4); Red Cell Distribution Width 12.9 % (11.5-14.0); White Blood Count 6.3 K/mm3 (4.0-10.5)
[2018-03-02] MEDS: glipiZIDE 5 MG TABLET PO SCH (06:47)
[2018-03-02] MEDS ORDERED: PANTOPRAZOLE SODIUM 40 MG TABLET.EC PO SCH (07:00)
[2018-03-02] MEDS: OXYBUTYNIN CHLORIDE 5 MG TABLET PO SCH (08:57)
[2018-03-02] MEDS: metFORMIN HCL 500 MG TABLET PO SCH (08:58)
[2018-03-02] MEDS: MEMANTINE HCL 10 MG TABLET PO SCH (08:58)
[2018-03-02] MEDS ORDERED: traZODone HCL 150 MG TABLET PO SCH (09:00)
[2018-03-02] MEDS ORDERED: MAGNESIUM OXIDE 500 MG PO SCH (09:00)
[2018-03-02] MEDS ORDERED: CHOLECALCIFEROL 1,000 UNIT CAPSULE PO SCH (09:00)
[2018-03-02] MEDS ORDERED: POTASSIUM 99 MG PO SCH (09:00)
[2018-03-02] MEDS ORDERED: FLUoxetine HCL 20 MG CAPSULE PO SCH (09:00)
[2018-03-02] MEDS: MORPHINE SULFATE 15 MG TABLET.SA PO SCH (09:03)
[2018-03-02] MEDS: CLONIDINE HCL 0.2 MG TABLET PO SCH (09:13)
[2018-03-02] MEDS ORDERED: ENOXAPARIN SODIUM 40 MG/0.4 ML SYRG SC SCH (09:16)
--- NOTE | 2018-03-02 12:46 | DS ---
(1) Status post total left knee replacement Problem: Acute (2) Acute blood loss anemia Problem: Acute (3) Diabetes 1.5, managed as type 2 Problem: Chronic (4) Hypertension Problem: Chronic (5) Hyperlipidemia Problem: Chronic (6) Obesity Problem: Chronic Description of Stay: Mrs. Gonzales was admitted to the floor after undergoing left total knee arthroplasty. Tolerated this well. Was admitted to the floor postoperatively for 24 hours of IV antibiotics, pain control, medical comanagement, and occupational and physical therapy. OT and PT were consulted to assist with activities of daily living and ambulation. Was made weightbearing as tolerated with range of motion as tolerated. Pain was initially controlled with IV regimen. This was transitioned to oral once tolerating a by mouth intake. Was resumed on home diet and medications. Had a Saenz catheter inserted and the operating room which was discontinued on postoperative day 1. A drain was placed intraoperatively into the knee which was discontinued on postoperative day 1. Lovenox SCD and PRAVIN hose were utilized for DVT prophylaxis. Vital signs remained stable to the hospital course. Serial labs were obtained which showed a final hemoglobin of 10.1 grams. BMP was reviewed and was stable. Physical examination throughout the hospital course showed an extremity that had sensation that was intact to light touch, palpable pulses, a benign wound, motor intact to the toes, ankle, and knee. Knee range of motion was approximately 5 d egrees to 70 degrees. Once an oral pain regimen was tolerated and physical therapy goals were met, it was felt that they were stable for discharge to home. Instructions: Continue with weightbearing as tolerated and range of motion as tolerated. It is OK to shower on the wound if it is not draining. If you note any drainage or for comfort you can cover with dry gauze and tape. Change every 2-3 days as needed. Continue with physical therapy. Resume home diet. Report any fever over 101.5 Fahrenheit, uncontrolled pain, increased drainage, foul odor of drainage, new or increased calf pain or shortness of breath, or any other significant complaints. A 325mg dialy aspirin will be started after finishing anticoagulation if not allergic. Continue with PRAVIN hose on the operative extremity until instructed otherwise. No driving until instructed otherwise. Follow up in approximately 10-14 days. Procedures Performed: see notes below List Procedures: Left total knee arthroplasty Results and Findings: Lab Pending Results 03/02/18 05:12: WBC 6.3, RBC 3.63 L, Hgb 10.7 L, Hct 31.6 L, MCV 87.1, MCH 29.5, MCHC 33.9, RDW 12.9, Plt Count 204, MPV 9.9 03/02/18 05:12: Sodium 134, Plasma Sodium 134, Potassium 4.2, Chloride 103, Carbon Dioxide 27.6, Anion Gap 7.6, BUN 11, Creatinine 0.80, Est GFR (Non-Af Amer) 78, BUN/Creatinine Ratio 13.8, Random Glucose 119 H, Calcium 8.3 Discharge Location: Home Disposition: Home self-care Condition: Good Discharge Activity: Activity as tolerated, Weight bearing, Other - with walker Discharge Diet: Consistent carbs, Low salt, Low fat/chol Referrals: Yanet Saravia MD [Primary Care Provider] - Complete Home Medications List: Complete Home Medication List: Memantine HCl [Namenda] 10 mg PO BID 06/02/13 Cholecalciferol [Vitamin D] 2,000 unit PO DAILY cap 11/22/17 Sennosides/Docusate Sodium [Senokot-S] 2 tab PO HS #30 tab 11/22/17 fluoxetine 20 mg capsule 80 mg PO QAM #120 cap 12/22/17 clonidine HCl 0.1 mg tablet See Rx Instructions PO .COMPLEX #90 tab 01/24/18 glipizide 5 mg tablet 5 mg PO BID #60 tab 01/24/18 metformin 500 mg tablet 500 mg PO BID #60 tab 01/24/18 omeprazole 40 mg capsule,delayed release 40 mg PO DAILY #90 cap 01/24/18 oxybutynin chloride 5 mg tablet 10 mg PO BID #120 tab 01/24/18 trazodone 150 mg tablet 450 mg PO DAILY #90 tab 01/24/18 magnesium oxide 500 mg tablet 500 mg PO DAILY tab 02/22/18 potassium 99 mg tablet 99 mg PO DAILY tab 02/22/18 Enoxaparin Sodium [Lovenox] 40 mg SC Q24H #7 disp.syrin 03/02/18 Morphine Sulfate [Ms Contin] 15 mg PO Q12H #20 tablet.sa 03/02/18 Sennosides/Docusate Sodium [Senokot-S] 2 tab PO HS tablet 03/02/18 oxyCODONE HCL/ACETAMINOPHEN [Percocet 5 MG/325 MG] 2 tab PO Q4H PRN #90 tablet 03/02/18
[2018-03-02 13:40] VITALS: BP 131/60
== END 2018-03-02 13:30 | disposition home or self-care (01) | DRG 470 ==
LOC: MS 06:52 → EDSTATUS 08:30
PROVIDERS: ADMIT Orthopaedic Surgery; ATTEND Orthopaedic Surgery
CPT/HCPCS: 36415; 73560; 80048; 85027; 90686; 94660; 97110; 97116; 97162; 97165; 97535